=== PATIENT | male | born 1985 | race Native Hawaiian/Other Pacific Islander ===

== ENCOUNTER 2018-12-31 13:15 | Emergency (ER) | payer OTHER ==
[2018-12-31 13:19] VITALS: BP 127/84
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
--- NOTE | 2018-12-31 14:23 | XRay Report ---
LUMBAR SPINE RADIOGRAPHS INDICATION: Pain. COMPARISON: None similar at this institution. FINDINGS: AP and lateral lumbar spine radiographs demonstrate normal vertebral body stature, alignment and disc heights. Mild L3-L5 superior endplate degenerative spurring. Intact SI joints. Nonobstructive bowel gas pattern. CONCLUSION: No acute lumbar radiographic abnormality, as described. Thank you for the opportunity to participate in this patient's care.
[2018-12-31] MEDS ORDERED: NORCO 7.5/325 PO ONE (15:00)
[2018-12-31] MEDS ORDERED: IBUPROFEN PO ONE (15:00)
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
== END 2018-12-31 15:46 | disposition home or self-care (01) ==
LOC: ED 13:15
DX: S39.012A Strain of muscle, fascia and tendon of lower back, initial encounter (principal); F17.200 Nicotine dependence, unspecified, uncomplicated; V87.7XXA Person injured in collision between other specified motor vehicles (traffic), initial encounter; Y93.89 Activity, other specified; Y92.488 Other paved roadways as the place of occurrence of the external cause; Y99.8 Other external cause status
CPT/HCPCS: 72100; 99283

== ENCOUNTER 2020-12-06 08:33 | Emergency (ER) | payer SELFPAY ==
[2020-12-06] MEDS ORDERED: ASPIRIN 325 MG TAB PO ONE (08:39)
--- NOTE | 2020-12-06 08:40 | Event Note ---
ED Screening Note Date of service: 12/06/20 Time: 08:38 ED Screening Note: 35-year-old male food with no prior medical condition presents to the ED complaining of mid to left-sided chest pain radiating down his left arm that began yesterday. This initial assessment/diagnostic orders/clinical plan/treatment(s) is/are subject to change based on patients health status, clinical progression and re- assessment by fellow clinical providers in the ED. Further treatment and workup at subsequent clinical providers discretion. Patient/guardian urged not to elope from the ED as their condition may be serious if not clinically assessed and managed. Initial orders include: EKG, chest x-ray, labs ordered
--- NOTE | 2020-12-06 09:09 | XRay Report ---
CHEST 1 VIEW 9:10 AM INDICATION / CLINICAL INFORMATION: Chest Pain. COMPARISON: None available. FINDINGS: SUPPORT DEVICES: None. HEART / MEDIASTINUM: The heart size and pulmonary vasculature are normal. The aorta is normal in zbigniew francis. LUNGS / PLEURA: There are small scattered calcified granulomata throughout both lungs. No acute pulmo nary or pleural abnormality. No pneumothorax. ADDITIONAL FINDINGS: No significant additional findings. IMPRESSION: No acute findings. Signer Name: Jon Rice MD Signed: 12/06/2020 9:04 AM Workstation Name: [id number]
--- NOTE | 2020-12-06 09:22 | Emergency Department Report ---
ED Chest Pain HPI - General Chief Complaint: Chest Pain Stated Complaint: CHEST PAIN Time Seen by Provider: 12/06/20 09:21 Source: patient Mode of arrival: Ambulatory Limitations: No Limitations - History of Present Illness Initial Comments: This is a pleasant 35-year-old [place] speaking male. I have obtained the history in [place]. He states that he has had chest pain for a few weeks and worse over the last 3 days. Yesterday he had an episode of rapid breathing and tingling in his fingers. He may have been somewhat sweaty at the time. However he does admit to acute anxiety. He states that he is going through a divorce and it is very stressful. He states he has never been to an emergency department for evaluation of chest pain in the past. He does smoke. His father in his 70s presumably of a heart attack. He has no prior diagnosis of hyperlipidemia or hypertension. Patient states the chest pain is somewhat intermittent and occurs at rest and is nonpleuritic. He does report tenderness in his anterior chest when he sits up a nd when I apply pressure to that area. He states the pain is dull but not a pressure. He states there definitely was not any radiation to his left left arm.he describes the pain as a dull ache in the central chest. He denies any pain in his arms whatsoever. He denies nausea vomiting or shortness of breath. He has not been coughing. He does not report any exposure to COVID-19. However he describes the tingling in his fingers as above described when I asked him about that. Patient denies leg pain or swelling. He states a few weeks ago he went to [place] but has not had any long distance recent travel. Complaint: chest pain -: week(s) Onset: during rest Pain Location: substernal Pain Radiation: none Severity: moderate Quality: dull Consistency: intermittent Improves With: nothing Worsens With: nothing re: denies: nausea, vomting, diaphoresis, dyspnea, sense of impending doom Other Symptoms: denies: cough, fever, syncope Treatments Prior to Arrival: none Aspirin use within the Past 7 Days: (0) No - Related Data Previous Rx's Medication Instructions Recorded Last Taken Type HYDROcodone/APAP 5-325 [[place] 1 each PO Q6HR PRN #15 tablet 12/31/18 Unknown Rx 5/325] Ibuprofen [Motrin] 800 mg PO Q8HR PRN #20 tablet 12/31/18 Unknown Rx methOCARBAMOL [Robaxin TAB] 500 mg PO Q6H PRN #15 tablet 12/31/18 Unknown Rx Allergies Allergy/AdvReac Type Severity Reaction Status Date / Time No Known Allergies Allergy Verified 12/31/18 13:17 Heart Score - HEART Score History: Slightly suspicious EKG: Normal Age: < 45 Risk factors: 1-2 risk factors Troponin: < normal limit HEART Score: 1 - Critical Actions Critical Actions: 0-3 pts:0.9-1.7%risk of adverse cardiac event.Candidate for discharge ED Review of Systems ROS: Stated complaint: CHEST PAIN Other details as noted in HPI Constitutional: denies: chills, fever Eyes: denies: eye pain, vision change ENT: denies: ear pain, throat pain Respiratory: denies: cough, shortness of breath, wheezing Cardiovascular: chest pain. denies: palpitations Endocrine: no symptoms reported Gastrointestinal: denies: abdominal pain, nausea, diarrhea Genitourinary: denies: urgency, dysuria Musculoskeletal: denies: back pain, arthralgia Skin: denies: rash, lesions Neurological: denies: headache, weakness, paresthesias Psychiatric: anxiety. denies: depression Hematological/Lymphatic: denies: easy bleeding, easy bruising ED Past Medical Hx - Past Medical History Previous Medical History?: No - Surgical History Past Surgical History?: Yes Hx Appendectomy: Yes - Social History Smoking Status: Current Every Day Smoker Substance Use Type: Alcohol - Medications Home Medications: Home Medications Medication Instructions Recorded Confirmed Last Taken Type HYDROcodone/APAP 5-325 [[place] 1 each PO Q6HR PRN #15 tablet 12/31/18 Unknown Rx 5/325] Ibuprofen [Motrin] 800 mg PO Q8HR PRN #20 tablet 12/31/18 Unknown Rx methOCARBAMOL [Robaxin TAB] 500 mg PO Q6H PRN #15 tablet 12/31/18 Unknown Rx ED Physical Exam - General Limitations: No Limitations General appearance: alert, in no apparent distress - Head Head exam: Present: atraumatic, normocephalic - Eye Eye exam: Present: normal appearance. Absent: scleral icterus - ENT ENT exam: Present: mucous membranes moist - Neck Neck exam: Present: normal inspection - Respiratory Respiratory exam: Present: normal lung sounds bilaterally, chest wall tenderness (Reproduces symptoms). Absent: respiratory distress - Cardiovascular Cardiovascular Exam: Present: regular rate, normal rhythm. Absent: systolic murmur, diastolic murmur, rubs, gallop - GI/Abdominal GI/Abdominal exam: Present: soft, normal bowel sounds. Absent: distended, tenderness, guarding, rebound - Rectal Rectal exam: Present: deferred - Extremities Exam Extremities exam: Present: normal inspection - Back Exam Back exam: Present: normal inspection - Neurological Exam Neurological exam: Present: alert, oriented X3, CN II-XII intact. Absent: motor sensory deficit - Psychiatric Psychiatric exam: Present: normal affect, normal mood - Skin Skin exam: Present: warm, dry, intact, normal color. Absent: rash ED Course Vital Signs 12/06/20 12/06/20 12/06/20 08:36 09:27 10:30 Temperature 98.3 F Pulse Rate 103 H 88 76 Respiratory 14 12 12 Rate Blood Pressure 154/99 Blood Pressure 138/93 138/95 [Right] O2 Sat by Pulse 98 98 96 Oximetry 12/06/20 12/06/20 12:00 13:30 Temperature Pulse Rate 98 H 89 Respiratory Rate Blood Pressure Blood Pressure 139/101 159/93 [Right] O2 Sat by Pulse 98 97 Oximetry - Reevaluation(s) Reevaluation #1: Patient without complaints in the emergency department. He is appropriate for outpatient follow-up. 12/06/20 13:34 VIVIAN score - Vivian Score Age > 65: (0) No Aspirin use within the Past 7 Days: (0) No 3 or more CAD Risk Factors: (0) No 2 or more Angina events in past 24 hrs: (0) No Known CAD with more than 50% Stenosis: (0) No Elevated Cardiac Markers: (0) No ST Deviation Greater than 0.5mm: (0) No VIVIAN Score: 0 ED Medical Decision Making - Lab Data Result diagrams: 12/06/20 08:46 12/06/20 08:46 Laboratory Results - last 24 hr 12/06/20 12/06/20 08:46 08:46 WBC 7.2 RBC 5.24 H Hgb 16.7 H Hct 48.3 H MCV 92 MCH 32 MCHC 35 H RDW 13.2 Plt Count 267 Lymph % (Auto) 18.4 [place] % (Auto) 7.2 Eos % (Auto) 2.2 Baso % (Auto) 0.8 Lymph # (Auto) 1.3 [place] # (Auto) 0.5 Eos # (Auto) 0.2 Baso # (Auto) 0.1 Seg Neutrophils % 71.4 H Seg Neutrophils # 5.1 Sodium 140 Potassium 3.8 Chloride 101.8 Carbon Dioxide 25 Anion Gap 17 BUN 12 Creatinine 0.9 Estimated GFR > 60 BUN/Creatinine Ratio 13 Glucose 119 H Calcium 9.5 Troponin T < 0.010 Laboratory Results - last 24 hr 12/06/20 12/06/20 08:46 08:46 WBC 7.2 RBC 5.24 H Hgb 16.7 H Hct 48.3 H MCV 92 MCH 32 MCHC 35 H RDW 13.2 Plt Count 267 Lymph % (Auto) 18.4 [place] % (Auto) 7.2 Eos % (Auto) 2.2 Baso % (Auto) 0.8 Lymph # (Auto) 1.3 [place] # (Auto) 0.5 Eos # (Auto) 0.2 Baso # (Auto) 0.1 Seg Neutrophils % 71.4 H Seg Neutrophils # 5.1 Sodium 140 Potassium 3.8 Chloride 101.8 Carbon Dioxide 25 Anion Gap 17 BUN 12 Creatinine 0.9 Estimated GFR > 60 BUN/Creatinine Ratio 13 Glucose 119 H Calcium 9.5 Troponin T < 0.010 Laboratory Results - last 24 hr 12/06/20 12/06/20 12/06/20 08:46 08:46 11:58 WBC 7.2 RBC 5.24 H Hgb 16.7 H Hct 48.3 H MCV 92 MCH 32 MCHC 35 H RDW 13.2 Plt Count 267 Lymph % (Auto) 18.4 [place] % (Auto) 7.2 Eos % (Auto) 2.2 Baso % (Auto) 0.8 Lymph # (Auto) 1.3 [place] # (Auto) 0.5 Eos # (Auto) 0.2 Baso # (Auto) 0.1 Seg Neutrophils % 71.4 H Seg Neutrophils # 5.1 Sodium 140 Potassium 3.8 Chloride 101.8 Carbon Dioxide 25 Anion Gap 17 BUN 12 Creatinine 0.9 Estimated GFR > 60 BUN/Creatinine Ratio 13 Glucose 119 H Calcium 9.5 Troponin T < 0.010 < 0.010 - EKG Data -: EKG Interpreted by Dc EKG shows normal: sinus rhythm, axis, intervals, QRS complexes, ST-T waves Rate: normal - EKG Data Interpretation: other (Mild early repolarization) - Radiology Data Radiology results: report reviewed, image reviewed FINDINGS: SUPPORT DEVICES: None. HEART / MEDIASTINUM: The heart size and pulmonary vasculature are normal. The aorta is normal in caliber. LUNGS / PLEURA: There are small scattered calcified granulomata throughout both lungs. No acute pulmonary or pleural abnormality. No pneumothorax. ADDITIONAL FINDINGS: No significant additional findings. IMPRESSION: No acute findings. Signer Name: Jon Rice MD Critical care attestation.: If time is entered above; I have spent that time in minutes in the direct care of this critically ill patient, excluding procedure time. ED Disposition Clinical Impression: Atypical chest pain Disposition: DC- TO HOME OR SELFCARE Is pt being admited?: No Does the pt Need Aspirin: No Condition: Stable Instructions: Nonspecific Chest Pain, Adult, Chest Pain (ED) Additional Instructions: Return any significant recurrent chest pain or other symptoms/acute change as needed. I have given you information regarding a primary care clinic and gerontology aide for follow-up. I would recommend enro-cok-[id number] medication such as Advil. Baby aspirin a day would be recommended considering your family history. Referrals: PRIMARY CARE, [Primary Care Provider] - 3-5 Days [facility] [Provider Group] - 3-5 Days [facility] [Provider Group] - 24 Hours Time of Disposition: 13:35 Print Language: SYRIAN
[2020-12-06 09:40] LABS: Basophils # (Auto) 0.1 K/mm3 (0.0-0.1); Basophils % (Auto) 0.8 % (0.0-1.8); Eosinophils # (Auto) 0.2 K/mm3 (0.0-0.4); Eosinophils % (Auto) 2.2 % (0.0-4.3); Hematocrit 48.3 % (35.5-45.6); Hemoglobin 16.7 gm/dl (11.8-15.2); Lymphocytes # (Auto) 1.3 K/mm3 (1.2-5.4); Lymphocytes % (Auto) 18.4 % (13.4-35.0); Mean Corpuscular HGB Conc 35 % (32-34); Mean Corpuscular Volume 92 fl (84-94); Monocytes # (Auto) 0.5 K/mm3 (0.0-0.8); Monocytes % (Auto) 7.2 % (0.0-7.3); Platelet Count 267 K/mm3 (140-440); Red Blood Count 5.24 M/mm3 (3.65-5.03); Red Cell Distribution Width 13.2 % (13.2-15.2)
[2020-12-06 10:02] LABS: BUN/Creatinine Ratio 13; Blood Urea Nitrogen 12 mg/dL (9-20); Calcium 9.5 mg/dL (8.4-10.2); Hemolysis Index 14
[2020-12-06 13:57] VITALS: BP 159/93
== END 2020-12-06 13:59 | disposition home or self-care (01) ==
LOC: ED 08:33
DX: R07.89 Other chest pain (principal); F17.200 Nicotine dependence, unspecified, uncomplicated; Z90.49 Acquired absence of other specified parts of digestive tract; Z79.899 Other long term (current) drug therapy
CPT/HCPCS: 36415; 71045; 80048; 84484; 85025; 93005